=== PATIENT | male | born 1970 | race Asian ===

== ENCOUNTER 2018-08-01 11:49 | Day surgery (SDC) | payer OTHER ==
[2018-07-29 19:05] VITALS: BMI 27.9
[~2018-08-01 11:49] MED LIST: oxyCODONE HCL 5 MG TABLET PO PRN
[2018-08-01] MEDS ORDERED: MIDAZOLAM HCL 2 MG/2 ML SINGLE DOSE VIAL ONE (12:41)
--- NOTE | 2018-08-01 13:33 | OP ---
Operative Note - Note: Operative Date: 08/01/18 Pre-Operative Diagnosis: Left renal stone Operation: Left ESWL Findings: 5 mm mid pole Left renal stone Post-Operative Diagnosis: Same as Pre-op Surgeon: José Luis Bro Anesthesia: Fractional Estimated Blood Loss (mls): 0 Operative Report Dictated: Yes
[2018-08-01 14:08] VITALS: BP 118/78; PULSE 68; TEMP 98.2
--- NOTE | 2018-08-02 08:06 | OP ---
DATE OF OPERATION: 08/01/2018 PREOPERATIVE DIAGNOSIS: Left renal stone. POSTOPERATIVE DIAGNOSIS: Left renal stone. PROCEDURE: Left extracorporeal shock wave lithotripsy. ATTENDING: Radha Puentes MD ANESTHESIA: Fractional. OPERATION FOLLOWS: The patient was brought in the operating room, placed in supine position on the operating room table. Ultrasonography and fluoroscopy were performed. A 5-mm left mid pole stone was identified. Anesthesia and preoperative antibiotics were then administered. Shock wave lithotripsy was performed. There were no complications noted. The patient tolerated the procedure very well. Excellent fragmentation of the stone was noted under real time ultrasonography and fluoroscopy. The disposition of the patient was to the recovery room. RADHA PUENTES M.D. [id number]
== END 2018-08-01 14:55 | disposition home or self-care (01) ==
LOC: JASU-SURG 11:49
PROVIDERS: ATTEND Urology
PROC: 0TF4XZZ Fragmentation in Left Kidney Pelvis, External Approach (ICD-10-PCS; principal; 2018-08-01 13:15)
DX: N20.0 Calculus of kidney (principal)

== ENCOUNTER 2019-02-14 09:34 | Day surgery (SDC) | payer OTHER ==
[2019-02-13 14:58] VITALS: BMI 28.0
[2019-02-14 11:22] VITALS: TEMP 98
[2019-02-14 12:22] VITALS: BP 121/78; PULSE 60
--- NOTE | 2019-02-15 20:45 | PATH ---
Surgical Pathology Report Patient Name: LORRAINE MENDOZA [facility]. Rec. #: [id number] /Age/Gender: 1970 (Age: 48) / M Account: [id number] Location: U-ENDOSCOPY Taken: 02/14/2019 Received: 02/14/2019 Reported: 02/15/2019 Physicians: Kvng Hopkins D.O. Specimen(s) Received A: DUODENUM, SECOND PORTION AND BULB B: GASTRIC ANGULARIS AND BODY Clinical History Function dyspepsia Postoperative diagnosis: Gastritis Final Diagnosis A. DUODENUM, SECOND PORTION AND BULB, BIOPSY: DUODENAL MUCOSA WITHOUT SIGNIFICANT PATHOLOGIC FINDINGS. B. GASTRIC, ANGULARIS AND BODY, BIOPSY: GASTRIC BODY MUCOSA WITH MODERATE CHRONIC ACTIVE GASTRITIS. IMMUNOHISTOCHEMICAL STAIN FOR H. PYLORI IS POSITIVE (MANY). Electronically Signed Mariann Lim M.D. Gross Description A. Received in formalin, labeled "biopsy second portion of duodenum and bulb" are 4 aburto, irregular portions of soft tissue ranging from 0.2-0.3 cm. in greatest dimension. The specimens are submitted in toto in one cassette. B. Received in formalin, labeled "biopsy body and angularis" are 5 aburto, irregular portions of soft tissue ranging from 0.2-0.7 cm. in greatest dimension. The specimens are submitted in toto in one cassette. 02/14/201902/14/2019
== END 2019-02-14 12:10 | disposition home or self-care (01) ==
LOC: JASU-ENDO 09:34
PROVIDERS: ATTEND Internal Medicine Gastroenterology
PROC: 0DB68ZX Excision of Stomach, Via Natural or Artificial Opening Endoscopic, Diagnostic (ICD-10-PCS; 2019-02-14)
PROC: 0DB98ZX Excision of Duodenum, Via Natural or Artificial Opening Endoscopic, Diagnostic (ICD-10-PCS; principal; 2019-02-14 12:15)
DX: K29.50 Unspecified chronic gastritis without bleeding (principal); B96.81 Helicobacter pylori [H. pylori] as the cause of diseases classified elsewhere; R10.13 Epigastric pain; I10 Essential (primary) hypertension; E78.00 Pure hypercholesterolemia, unspecified; Z86.73 Personal history of transient ischemic attack (TIA), and cerebral infarction without residual deficits; Z79.82 Long term (current) use of aspirin
CPT/HCPCS: 88305-TC; 88342-TC

== ENCOUNTER 2019-02-21 11:28 | Day surgery (SDC) | payer OTHER ==
[2019-02-20 09:37] VITALS: BMI 28.0
[2019-02-21 13:13] VITALS: TEMP 98.4
[2019-02-21 14:18] VITALS: BP 108/64; PULSE 61
--- NOTE | 2019-02-23 17:52 | PATH ---
Surgical Pathology Report Patient Name: LORRAINE MENDOZA [facility]. Rec. #: [id number] /Age/Gender: 1970 (Age: 48) / M Account: [id number] Location: U-ENDOSCOPY Taken: 02/21/2019 Received: 02/22/2019 Reported: 02/23/2019 Physicians: Kvng Hopkins D.O. Specimen(s) Received HEPATIC FLEXURE Clinical History Colon screening Postoperative diagnosis: Hemorrhoids, erosion Final Diagnosis COLON, HEPATIC FLEXURE, EROSION, BIOPSY: COLONIC MUCOSA WITH MILD INCREASE IN ACUTE AND CHRONIC INFLAMMATORY CELLS WITHIN LAMINA PROPRIA AND FOCAL SURFACE EROSION. Electronically Signed Mariann Lim M.D. Gross Description Received in formalin, labeled "biopsy hepatic flexure" is a aburto, irregular portion of soft tissue measuring 0.3 cm. in greatest dimension. The specimen is submitted in toto in one cassette. 02/22/2019 saudi02/22/2019
== END 2019-02-21 14:12 | disposition home or self-care (01) ==
LOC: JASU-ENDO 11:28
PROVIDERS: ATTEND Internal Medicine Gastroenterology
PROC: 0DBL8ZX Excision of Transverse Colon, Via Natural or Artificial Opening Endoscopic, Diagnostic (ICD-10-PCS; principal; 2019-02-21 11:15)
DX: Z12.11 Encounter for screening for malignant neoplasm of colon (principal); K64.8 Other hemorrhoids
CPT/HCPCS: 88305-TC

== ENCOUNTER 2024-05-01 04:22 | Day surgery (SDC) | payer OTHER ==
[2024-04-28 08:41] VITALS: BMI 25.0
[2024-05-01] MEDS ORDERED: MIDAZOLAM HCL 2 MG/2 ML SINGLE DOSE VIAL ONE (16:34)
[2024-05-01 17:10] VITALS: RESP 16
[2024-05-01 17:53] VITALS: BP 113/74; PULSE 58; TEMP 97.8
== END 2024-05-01 17:56 | disposition home or self-care (01) ==
LOC: JASU-SURG 04:22
PROVIDERS: ATTEND Urology
PROC: 0TF3XZZ Fragmentation in Right Kidney Pelvis, External Approach (ICD-10-PCS; principal; 2024-05-01 16:40)
DX: N20.0 Calculus of kidney (principal)